=== PATIENT | female | born 1935 | race Two or more races ===

== ENCOUNTER 2021-06-29 08:48 | Outpatient (CLI) | payer OTHER | END 2021-06-29 09:01 | disposition home or self-care (01) | LOC: EDBD 08:48 → TOM 08:48 | DX: K62.5 Hemorrhage of anus and rectum (principal) | CPT/HCPCS: 74262; Q9965 ==

== ENCOUNTER 2021-07-26 05:50 | Day surgery (SDC) | payer OTHER | END 2021-07-26 12:30 | disposition home or self-care (01) | LOC: AMB-ENDOS 05:50 | PROVIDERS: ATTEND Surgery | DX: D37.4 Neoplasm of uncertain behavior of colon (principal); K57.30 Diverticulosis of large intestine without perforation or abscess without bleeding; I10 Essential (primary) hypertension; Z79.82 Long term (current) use of aspirin; Z20.822 Contact with and (suspected) exposure to COVID-19 ==

== ENCOUNTER 2021-08-23 12:15 | Inpatient (IN) | payer OTHER ==
[~2021-08-23] VITALS: Ht 149.9 cm; Wt 49.0 kg
[2021-08-23] MEDS ORDERED: SIMVASTATIN10 MG PO (15:00)
[2021-08-23] MEDS ORDERED: TOPROL XL25 M1 PO (15:00)
[2021-08-23] MEDS ORDERED: CHILDREN'S ASPI81 MG PO (15:01)
[2021-08-23] MEDS ORDERED: HYDROCHLOROTH12.5 MG PO (15:01)
[2021-08-23] MEDS ORDERED: NORVASC2.5 M1 PO (15:02)
[2021-08-23] MEDS ORDERED: D3 + K2 DOTS 11 EACH PO (15:02)
[2021-08-23] MEDS ORDERED: CLONAZEPAM0.125 MG PO (15:02)
[2021-08-28] MEDS ORDERED: METOPROLOL SUCC50 MG (08:00)
[2021-08-28] MEDS ORDERED: CLONAZEPAM0.5 MG (08:00)
[2021-08-28] MEDS ORDERED: AMLODIPINE BESYL5 MG (08:00)
[2021-08-28] MEDS ORDERED: VITAMIN D325 MCG (08:01)
[2021-08-28] MEDS ORDERED: SIMVASTATIN40 MG (08:01)
[2021-08-30] MEDS ORDERED: DICY20TA PO (13:29)
[2021-08-30] MEDS ORDERED: INTESTINEX680 M1 PO (13:29)
[2021-08-30] MEDS ORDERED: ULTRACET PO (13:29)
== END 2021-08-30 15:23 | disposition home or self-care (01) | DRG 330 ==
LOC: O/R 08-27 09:27 → SURH 08-27 09:27
PROVIDERS: ADMIT Surgery; ATTEND Surgery
PROC: 0DBP4ZZ Excision of Rectum, Percutaneous Endoscopic Approach (ICD-10-PCS; 2021-08-27)
PROC: 07BC4ZZ Excision of Pelvis Lymphatic, Percutaneous Endoscopic Approach (ICD-10-PCS; 2021-08-27)
PROC: 0DTN4ZZ Resection of Sigmoid Colon, Percutaneous Endoscopic Approach (ICD-10-PCS; principal; 2021-08-27 14:45)
DX: C19 Malignant neoplasm of rectosigmoid junction (principal); K57.32 Diverticulitis of large intestine without perforation or abscess without bleeding; R59.0 Localized enlarged lymph nodes; D36.0 Benign neoplasm of lymph nodes